=== PATIENT | female | born 1995 | race Caucasian/White ===

== ENCOUNTER 2019-02-11 13:03 | Inpatient (IN) ==
[2019-02-11] MEDS ORDERED: *HR* Nalbuphine 10 MG/ML AMPUL IVP PRN (13:22)
[2019-02-11] MEDS ORDERED: miSOPROStoL 25 MCG TABLET PO PRN (13:22)
[2019-02-11] MEDS ORDERED: Famotidine 20 MG/2 ML VIAL IVP PRN (13:22)
[2019-02-11] MEDS ORDERED: Lidocaine 1% 20 ML MDV INFILT PRN (13:22)
[2019-02-11] MEDS ORDERED: Naloxone 0.4 MG/ML INJ IVP PRN (13:22)
[2019-02-11] MEDS ORDERED: Metoclopramide 10 MG/2 ML VIAL IVP PRN (13:22)
[2019-02-11] MEDS ORDERED: Ondansetron 4 MG/2 ML VIAL IVP PRN (13:22)
[2019-02-11] MEDS ORDERED: Ringers Solution, Lactated 1,000 ML IVC SCH (13:30)
[2019-02-11] MEDS ORDERED: Oxytocin 20 units/ LR 1000 mL 20 UNIT/1,000 ML BAG IVC SCH (13:30)
[2019-02-11 14:01] LABS: Basophils % 0.4 %; Eosinophils # 0.1 K/mcL (0.0-0.6); Eosinophils % 0.7 %; Hemoglobin 13.8 g/dL (11.5-15.4); Immature Granulocytes % 0.6 % (0-4); Lymphocytes # 1.8 K/mcL (0.6-4.6); Lymphocytes % 19.3 %; Mean Corpuscular HGB Conc 33.7 g/dL (31.6-35.5); Mean Corpuscular Hemoglobin 28.3 pg (28.0-33.3); Mean Corpuscular Volume 84.2 fL (83.0-100.0); Mean Platelet Volume 12.9 fL (9.4-12.4); Monocytes # 0.6 K/mcL (0.0-1.3); Monocytes % 6.2 %; Neutrophils # 6.8 K/mcL (1.6-8.9); Nucleated Red Blood Cells 0.2 /100 WBC (0); Platelet Count 201 K/mcL (140-400); Red Blood Count 4.87 M/mcL (3.82-4.97); Red Cell Distribution Width 13.2 % (11.5-14.5); Segmented Neutrophils % 72.8 %; White Blood Count 9.4 K/mcL (4.3-11.1)
[2019-02-11 14:10] LABS: Amphetamine Screen,Urine Negative ng/mL (Cutoff=1000); Barbiturate Screen,Urine Negative ng/mL (Cutoff=200); Benzodiazepines Screen,Urine Negative ng/mL (Cutoff=200); Cannabinoid Screen,Urine Negative ng/mL (Cutoff = 50); Cocaine Screen,Urine Negative ng/mL (Cutoff= 300); Opiate Screen,Urine Negative ng/mL (Cutoff=300); Phencyclidine Screen,Urine Negative ng/mL (Cutoff=25)
[2019-02-11] MEDS ORDERED: *HR* FentaNYL (PF) 100 MCG/2 ML VIAL EP ONE (18:40)
[2019-02-11] MEDS ORDERED: Ropivacaine/PF 0.2% 20 ML VIAL EP ONE (18:40)
[2019-02-11] MEDS ORDERED: Epidural Premix (fent/bupiv) 110 ML EP SCH (18:45)
[2019-02-11] MEDS ORDERED: *HR* FentaNYL (PF) 100 MCG/2 ML VIAL ONE (21:01)
[2019-02-12] MEDS ORDERED: Famotidine 20 MG/2 ML VIAL IVP ONE (01:15)
[2019-02-12] MEDS ORDERED: Acetaminophen 325 MG TABLET PO ONE (08:36)
[2019-02-12] MEDS ORDERED: Lanolin 7 G OINT...G. TP PRN (14:17)
[2019-02-12] MEDS ORDERED: Benzocaine/Menthol 56 GM AEROSOL SPRAY TP PRN (14:17)
[2019-02-12] MEDS ORDERED: Acetaminophen 325 MG TABLET PO PRN (14:17)
[2019-02-12] MEDS ORDERED: Oxytocin 20 units/ LR 1000 mL 20 UNIT/1,000 ML BAG IVC SCH (14:17)
[2019-02-12] MEDS: Ibuprofen 600 MG TABLET PO PRN ×2 (14:33→21:02)
[2019-02-12] MEDS: Famotidine 20 MG TABLET PO SCH (22:13)
[2019-02-13 01:45] LABS: Basophils % 0.2 %; Eosinophils # 0.1 K/mcL (0.0-0.6); Eosinophils % 0.6 %; Hematocrit 37.9 % (35.3-44.9); Hemoglobin 12.4 g/dL (11.5-15.4); Immature Granulocytes % 0.5 % (0-4); Lymphocytes # 2.2 K/mcL (0.6-4.6); Mean Corpuscular HGB Conc 32.7 g/dL (31.6-35.5); Mean Corpuscular Hemoglobin 27.9 pg (28.0-33.3); Mean Corpuscular Volume 85.2 fL (83.0-100.0); Mean Platelet Volume 12.7 fL (9.4-12.4); Monocytes # 1.2 K/mcL (0.0-1.3); Monocytes % 5.8 %; Neutrophils # 16.3 K/mcL (1.6-8.9); Platelet Count 135 K/mcL (140-400); Red Blood Count 4.45 M/mcL (3.82-4.97); Red Cell Distribution Width 13.4 % (11.5-14.5); Segmented Neutrophils % 81.9 %; White Blood Count 19.9 K/mcL (4.3-11.1)
[2019-02-13] MEDS: Ibuprofen 600 MG TABLET PO PRN ×2 (02:51→11:42)
[2019-02-13 07:33] VITALS: BP 92/63
[2019-02-13] MEDS: Famotidine 20 MG TABLET PO SCH (08:00)
[2019-02-13] MEDS ORDERED: Prenatal Vit/FA 1 EACH TABLET PO SCH (09:00)
== END 2019-02-13 18:37 | disposition home or self-care (01) | DRG 807 ==
LOC: 1NENULAB 13:03 → 1NENUOBS 02-12 13:25
PROVIDERS: ADMIT Registered Nurse; ATTEND Registered Nurse